=== PATIENT | male | born 1990 | race Caucasian/White ===

== ENCOUNTER 2016-10-01 10:56 | Emergency (ER) | payer OTHER ==
--- NOTE | 2016-10-01 12:10 | ED SKIN/ALLERGY COMPLAINT ---
History of Present Illness General Chief Complaint: Skin Rash/ Abcess Stated Complaint: ABCESS Source: patient Exam Limitations: no limitations Vital Signs & Intake/Output Vital Signs & Intake/Output Vital Signs Date Time Temp Pulse Resp B/P Pulse O2 O2 Flow FiO2 Ox Delivery Rate 10/01 1307 98.0 100 18 139/81 96 Room Air 10/01 1100 98.2 120 20 137/81 99 Room Air Allergies Coded Allergies: No Known Allergies (10/01/16) Reconcile Medications Amoxicillin 500 MG CAPSULE 1 CAP PO TID INFECTION Hydrocodone/Acetaminophen ([place] 5-325 Tablet) 5 MG-325 MG TABLET 1 TAB PO Q4- 6 PRN PRN PAIN Triage Note: PT PRESENTS TO ER C/O OF TAILBONE PAIN. PT STATES HE WAS AT A WALK-IN OVER THE WEEKEND AND WAS STARTED ON ABX FOR THE CYST. PT STATES PAIN IS WORSE TODAY. PT STATES HE HAS BEEN MISSING WORK BECAUSE HE CAN'T SIT. Triage Nurses Notes Reviewed? yes HPI: For about 1 week patient has had atraumatic coccyx pain with swelling and mild redness. It is getting worse. He went to a walk-in center a few days ago and was told he had an early abscess but it was too deep to open, he was placed on Bactrim, he is not getting any better. He states the pain is severe, he feels mild diaphoresis on occasion and decreased appetite. No chills or fever. No nausea or vomiting. He cannot sit due to the pain which is severe and throbbing. No history of same (JUDY CORRAL) Past History Travel History Traveled to [place] past 21 day No Medical History Any Pertinent Medical History? none Neurological: NONE EENT: NONE Cardiovascular: NONE Respiratory: NONE Surgical History Surgical History: femur fracture Psychosocial History What is your primary language Hungarian Tobacco Use: Current Daily Use Daily Tobacco Use Amount/Type: => 5 Cigarettes daily ETOH Use: denies use Family History Hx Contributory? No (JUDY CORRAL) Review of Systems Review of Systems Constitutional: Reports: see HPI. EENTM: Reports: no symptoms. Respiratory: Reports: no symptoms. Cardiovascular: Reports: no symptoms. GI: Reports: no symptoms. Genitourinary: Reports: no symptoms. Musculoskeletal: Reports: no symptoms. Neurological/Psychological: Reports: no symptoms. Hematologic/Endocrine: Reports: no symptoms. Immunologic/Allergic: Reports: no symptoms. All Other Systems: Reviewed and Negative (JUDY CORRAL) Physical Exam Physical Exam General Appearance: well developed/nourished Comments: HEENT: Atraumatic, extraocular motion intact Neck: Supple, no lymphadenopathy Back: Nontender Respiratory: No respiratory distress Heart: Tachycardia Extremities: No edema, full range of motion Neuro: Alert and oriented x3 Psych: Mood affect normal, normal memory normal judgment. Skin: Warm and dry, no rash on exposed skin Coccyx region, large abscess noted at the apex of the gluteal fold, red indurated severely tender and moderate swelling. Positive tenseness and fluctuance (JUDY CORRAL) Progress Differential Diagnosis: abscess/cellulitis, sepsis Plan of Care: Orders Procedure Date/time Status TRUNK AREA CULTURE 10/01 1231 Active Saline Lock 10/01 1159 Active Microbiology 10/01 1232 TRUNK: Culture & Sensitivity - RECD 10/01 123 TRUNK: Gram Stain - RECD Comments: Patient was injected with 10 mL's of lidocaine 2% with epinephrine into the coccyx region about the abscess however he continued to have significant pain and I could not adequately perform the procedure. He was then given 100 g of fentanyl and 2 mg of Versed IV to help him tolerate the procedure. At which point he was able to tolerate the procedure well, given additional dose of 10 mL 's of lidocaine into the area and was able to tolerate the procedure well without complications. He was monitored for 20 minutes after the procedure was completed and showed no ill effects or malingering lethargy or respiratory depression from the medication. He'll return in 2 days for recheck, continuing the Bactrim and amoxicillin was added. A culture was sent. (JUDY CORRAL) Departure Departure Disposition: HOME OR SELF CARE Condition: Stable Clinical Impression Primary Impression: Abscess of coccyx Referrals: MARILIN PENA,TAYLOR Barajas (PCP/Family) Additional Instructions: Continue the antibiotics, start the amoxicillin and continue Bactrim. Take medication for pain as needed for the next few days. Return in 2 days for reevaluation of your abscess Watch for signs of worsening infection such as fever or flulike illness, nausea or vomiting, return with any concerns Departure Forms: Customer Survey General Discharge Information Prescriptions: Current Visit Scripts Amoxicillin 1 CAP PO TID #30 CAP Hydrocodone/Acetaminophen ([place] 5-325 Tablet) 1 TAB PO Q4-6 PRN PRN PAIN #15 TAB (JUDY CORRAL) PA/VEGETABLE INSPECTOR Co-Sign Statement Statement: ED Attending supervision documentation- [] I saw and evaluated the patient. I have also reviewed all the pertinent lab results and diagnostic results. I agree with the findings and the plan of care as documented in the PA's/VEGETABLE INSPECTOR's documentation. [X] I have reviewed the ED Record and agree with the PA's/VEGETABLE INSPECTOR's documentation. [] Additions or exceptions (if any) to the PAs/VEGETABLE INSPECTOR's note and plan are summarized below: [] (MARC PENA,ROMANA) Procedures Incision and Drainage Site: coccyx Blade Size: 15 I & D Procedure: Yes: betadine prep, sterile drapes applied, sterile dressing applied. No: wick placed. Progress: Moderate amount of purulent foul-smelling and bloody discharge was expressed. Irrigated. Loculations broken up with a Rosalinda clamp. Sterile dressing applied. (JUDY CORRAL)
[2016-10-01] MEDS ORDERED: AMOXICILLIN500 M2 PO (12:32)
[2016-10-01] MEDS ORDERED: NORCO 5-325 TA1 EACH PO (12:32)
[2016-10-01 13:07] VITALS: BP 139/81
== END 2016-10-01 13:08 ==
LOC: ERH 10:56
DX: L05.01 Pilonidal cyst with abscess (principal)
CPT/HCPCS: 87070; 87147; 96374; 96375

== ENCOUNTER 2016-10-04 09:40 | Emergency (ER) | payer OTHER ==
[~2016-10-04] VITALS: Ht 188 cm; Wt 104.3 kg
[~2016-10-04 09:40] MED LIST: AMOXICILLIN500 M2 PO; NORCO 5-325 TA1 EACH PO
[2016-10-04 09:45] VITALS: BP 125/88
--- NOTE | 2016-10-04 10:03 | ED SKIN/ALLERGY COMPLAINT ---
History of Present Illness General Chief Complaint: General Adult Stated Complaint: CYST REMOVED ON 10/01, HERE FOR CHECK UP Source: patient, old records Exam Limitations: no limitations Vital Signs & Intake/Output Vital Signs & Intake/Output Vital Signs Date Time Temp Pulse Resp B/P Pulse O2 O2 Flow FiO2 Ox Delivery Rate 10/04 0945 98.5 76 18 125/88 100 Room Air Allergies Coded Allergies: No Known Allergies (10/01/16) Reconcile Medications Amoxicillin 500 MG CAPSULE 1 CAP PO TID INFECTION Hydrocodone/Acetaminophen ([place] 5-325 Tablet) 5 MG-325 MG TABLET 1 TAB PO Q4- 6 PRN PRN PAIN Oxycodone HCl/Acetaminophen (Percocet 5-325 MG Tablet) 5 MG-325 MG TABLET 1 TAB PO Q6H PRN PAIN Triage Note: HERE FOR RECHECK OF COCCYX CYST. HAD I AND D DONE ON 10/01. PAIN IS WORSE NOW. Triage Nurses Notes Reviewed? yes HPI: Patient is a 26-year-old male presents for recheck of abscess to the coccyx area. Patient had the area drained 3 days ago. Patient reports infection began approximately one week ago. Patient has been taking antibiotics and hydrocodone. Patient reports that he believes that the area has been improving since the procedure but reports that the hydrocodone is not significantly helping the pain. Pain is currently moderate. Patient denies fevers. Past History Travel History Traveled to [place] past 21 day No Medical History Any Pertinent Medical History? none Neurological: NONE EENT: NONE Cardiovascular: NONE Respiratory: NONE Surgical History Surgical History: femur fracture Psychosocial History What is your primary language Slovenian Tobacco Use: Current Daily Use Daily Tobacco Use Amount/Type: => 5 Cigarettes daily ETOH Use: denies use Family History Hx Contributory? No Review of Systems Review of Systems Constitutional: Denies: chills, fever. EENTM: Reports: no symptoms. Respiratory: Denies: cough, short of breath. Cardiovascular: Denies: chest pain. GI: Reports: nausea. Denies: abdominal pain. Musculoskeletal: Reports: no symptoms. Skin: Reports: no symptoms. Neurological/Psychological: Reports: no symptoms. Hematologic/Endocrine: Denies: bruising, bleeding. Immunologic/Allergic: Denies: splenectomy. Physical Exam Physical Exam General Appearance: well developed/nourished, alert, awake Head: atraumatic, normal appearance Eyes: Bilateral: normal appearance, PERRL, EOMI. Ears, Nose, Throat: hearing grossly normal Neck: normal inspection, supple, full range of motion Respiratory: no respiratory distress Back: normal inspection, normal range of motion Extremities: normal inspection, normal capillary refill, normal range of motion Neurologic/Psych: no motor/sensory deficits, awake, alert, oriented x 3, normal gait, normal mood/affect Skin: 1.5 cm incision that is still open to the area of the superior gluteal cleft. 0.5 cm of surrounding erythema. Mild induration. Bloody drainage from the area, no purulence. Progress Differential Diagnosis: abscess/cellulitis, necrotizing fasciitis Plan of Care: Area does not appear to require further incision and drainage. Patient nontoxic appearing, afebrile. We'll provide patient with information for general surgical follow-up regarding possible need for cyst Removal and Further Evaluation. Departure Departure Time of Disposition: 1016 Disposition: HOME OR SELF CARE Condition: Stable Clinical Impression Primary Impression: Abscess re-check Referrals: MARILIN PENA,TAYLOR Barajas (PCP/Family) ELDER PENA,NEERU Perez Additional Instructions: Follow-up with the surgeon listed in your discharge paperwork for further evaluation. Call this afternoon for appointment. Continue taking the antibiotics as previously directed. Sitz bath in warm water for 10-20 minutes 4 -5 times a day. Return to the emergency department if redness spreading, increasing swelling, increasing pain, fevers, or worsening of symptoms. If symptoms have not resolved by Friday then return to the ER for recheck. Departure Forms: Customer Survey General Discharge Information Prescriptions: Current Visit Scripts Oxycodone HCl/Acetaminophen (Percocet 5-325 MG Tablet) 1 TAB PO Q6H PRN PAIN #10 TAB
[2016-10-04] MEDS ORDERED: PERCOCET 5-3251 EACH PO (10:18)
== END 2016-10-04 10:24 ==
LOC: ERH 09:40
DX: L05.01 Pilonidal cyst with abscess (principal)